=== PATIENT | female | born 1990 | race Caucasian/White ===

== ENCOUNTER 2022-02-20 13:50 | Inpatient (IN) | payer OTHER ==
[2022-02-20] MEDS ORDERED: OXYTOCIN 30 UNITS in 0.9% NS 30 UNIT/500 ML INFUS.BAG IVPB SCH (15:30)
[2022-02-20] MEDS ORDERED: DEXTROSE 5%-LACTATED RINGERS 1,000 ML IV SCH (15:30)
[2022-02-20 15:35] VITALS: BMI 29.2
[2022-02-20] MEDS ORDERED: OXYTOCIN 30 UNITS in 0.9% NS 30 UNIT/500 ML INFUS.BAG IVPB ONE (15:44)
[2022-02-20] MEDS ORDERED: BUTORPHANOL TARTRATE 1 MG/ML VIAL IVPB ONE (16:46)
[2022-02-20] MEDS ORDERED: PROMETHAZINE HCL 25 MG/1 ML VIAL IVPUSH ONE (16:46)
[2022-02-20] MEDS ORDERED: BUTORPHANOL TARTRATE 2 MG/ML VIAL ONE (16:53)
[2022-02-20] MEDS ORDERED: PROMETHAZINE HCL 25 MG/1 ML VIAL ONE (16:53)
[2022-02-20 17:03] LABS: BASO % 0.3 % (0-2.0); EOS % 0.7 % (0-4.5); HEMATOCRIT 38.5 % (32.4-45.2); HEMOGLOBIN 13.4 GM/dL (10.7-15.3); LYMPH % 26.5 % (8-40); MCH 31.3 pg (25.7-33.7); MCHC 34.8 g/dl (32.0-36.0); MEAN PLT VOLUME 9.9 fl (7.5-11.1); NEUT % 64.5 % (42.8-82.8); PLATELET COUNT 111 10^3/uL (134-434); RBC 4.27 M/mm3 (3.60-5.2); RDW 13.2 % (11.6-15.6); WHITE BLOOD COUNT 9.4 K/mm3 (4.0-10.0)
[2022-02-20] MEDS ORDERED: NALOXONE HCL 0.4 MG/ML VIAL IVPUSH PRN (17:07)
[2022-02-20] MEDS ORDERED: FENTANYL CITRATE/PF 50 MCG/ML VIAL ONE (17:11)
[2022-02-20] MEDS ORDERED: FENTANYL/BUPIVACAINE/NS/PF - PCEA - 50 ML DISP.SYRIN EP ONE (17:12)
[2022-02-20] MEDS ORDERED: FENTANYL/BUPIVACAINE/NS/PF - PCEA - 50 ML DISP.SYRIN EP SCH (17:15)
[2022-02-20 17:19] LABS: CALCIUM 9.1 mg/dL (8.5-10.1)
[2022-02-20 17:20] LABS: BLOOD UREA NITROGEN 9.9 mg/dL (7-18)
[2022-02-20 17:23] LABS: CREATININE 0.5 mg/dL (0.55-1.3)
[2022-02-20 17:25] LABS: INR 0.93 (0.83-1.09); PROTHROMBIN TIME (PATIENT) 10.7 SEC (9.7-13.0)
[2022-02-20 17:28] LABS: ACTIVATED PTT 29.2 SECONDS (25.2-36.5)
[2022-02-20] MEDS ORDERED: OXYTOCIN 20 UNITS in 0.9% NS 20 UNIT/1,000 ML INFUS.BAG IV ONE (20:21)
[2022-02-20] MEDS ORDERED: LIDOCAINE HCL 1% PRESERVATIVE FREE - 30ML VIAL ONE (22:19)
[2022-02-20] MEDS ORDERED: BENZOCAINE 20% 57 GM BOTTLE TP PRN (22:56)
[2022-02-20] MEDS ORDERED: BENZOCAINE 28 GM HEMORRHOIDAL OINTMENT TP PRN (22:56)
[2022-02-20] MEDS ORDERED: oxyCODONE HCL 5 MG TABLET PO PRN (22:56)
[2022-02-20] MEDS ORDERED: BISACODYL 10 MG SUPP.RECT RC PRN (22:56)
[2022-02-20] MEDS ORDERED: ACETAMINOPHEN 325 MG TABLET (FP) PO PRN (22:56)
[2022-02-20] MEDS ORDERED: WITCH HAZEL 50% (TUCKS) 40 PAD/JAR PAD TP PRN (22:56)
[2022-02-20] MEDS ORDERED: METHYLERGONOVINE MALEATE 0.2 MG/1 ML AMP IM PRN (22:56)
[2022-02-20] MEDS ORDERED: OXYTOCIN 20 UNITS in 0.9% NS 20 UNIT/1,000 ML INFUS.BAG IV SCH (23:00)
[2022-02-21 03:09] VITALS: RESP 18
[2022-02-21] MEDS: PRENATAL VITAMINS W/ FOLIC ACID TABLET (FP) PO SCH (09:20)
[2022-02-21 09:28] LABS: BASO % 0.2 % (0-2.0); EOS % 0.1 % (0-4.5); HEMATOCRIT 36.7 % (32.4-45.2); HEMOGLOBIN 12.1 GM/dL (10.7-15.3); LYMPH % 15.2 % (8-40); MEAN PLT VOLUME 9.2 fl (7.5-11.1); MONO % 7.3 % (3.8-10.2); NEUT % 77.2 % (42.8-82.8); PLATELET COUNT 145 10^3/uL (134-434); RBC 4.03 M/mm3 (3.60-5.2); RDW 12.9 % (11.6-15.6); WHITE BLOOD COUNT 19.1 K/mm3 (4.0-10.0)
[2022-02-21] MEDS: IBUPROFEN 600 MG TABLET (FP) PO PRN ×2 (14:33→22:46)
[2022-02-21] MEDS ORDERED: SENNOSIDES/DOCUSATE COMBO (SENNA PLUS) TABLET (UD) PO PRN (22:00)
[2022-02-22 09:22] VITALS: BP 117/70; PULSE 105; TEMP 97.2
[2022-02-22] MEDS: PRENATAL VITAMINS W/ FOLIC ACID TABLET (FP) PO SCH (10:09)
[2022-02-22] MEDS: IBUPROFEN 600 MG TABLET (FP) PO PRN (10:14)
== END 2022-02-22 11:45 | disposition home or self-care (01) | DRG 560 ==
LOC: JERBED 13:50 → JLDR 14:51 → J3W 02-21 02:10
PROVIDERS: ADMIT Obstetrics & Gynecology; ATTEND Obstetrics & Gynecology
PROC: 10E0XZZ Delivery of Products of Conception, External Approach (ICD-10-PCS; principal; 2022-02-20)
DX: O70.0 First degree perineal laceration during delivery (principal); Z3A.39 39 weeks gestation of pregnancy; Z37.0 Single live birth
CPT/HCPCS: 0241U-QW; 36415; 59409; 80048; 85025; 85610; 85730; 86780; 86850; 86900; 86901